=== PATIENT | female | born 1935 | race Caucasian/White ===

== ENCOUNTER 2019-12-26 07:45 | Outpatient (CLI) | payer OTHER ==
[~2019-12-26 07:45] MED LIST: CALAN SR120 MG PO; CIPRO500 MG PO; PAXIL40 MG PO; [UNRECOGNIZED DRUG - OTHER]; [UNRECOGNIZED DRUG - OTHER] PO
== END 2019-12-26 07:53 | disposition home or self-care (01) ==
LOC: SONOGRAMA 07:45
DX: E04.2 Nontoxic multinodular goiter (principal)

== ENCOUNTER 2020-05-07 07:29 | Outpatient (CLI) | payer OTHER | END 2020-05-07 07:34 | disposition home or self-care (01) | LOC: RX STUDY 07:29 | PROVIDERS: ATTEND Internal Medicine Gastroenterology | DX: R13.19 Other dysphagia (principal) ==

== ENCOUNTER 2021-03-29 16:32 | Inpatient (IN) | payer OTHER ==
[~2021-03-29] VITALS: Ht 160 cm; Wt 68.0 kg
[2021-03-29] MEDS ORDERED: ATORVASTATIN CA20 MG (17:00)
[2021-03-29] MEDS ORDERED: NAMENDA5 MG (17:00)
== END 2021-04-01 15:23 | disposition home or self-care (01) | DRG 379 ==
LOC: ER 16:32 → MEDI 21:15
PROVIDERS: ADMIT Internal Medicine; ATTEND Internal Medicine
PROC: 30233N1 Transfusion of Nonautologous Red Blood Cells into Peripheral Vein, Percutaneous Approach (ICD-10-PCS; principal; 2021-03-30)
PROC: 02HV33Z Insertion of Infusion Device into Superior Vena Cava, Percutaneous Approach (ICD-10-PCS; 2021-03-31)
DX: K92.1 Melena (principal); D50.0 Iron deficiency anemia secondary to blood loss (chronic); I10 Essential (primary) hypertension; R13.19 Other dysphagia; Z20.822 Contact with and (suspected) exposure to COVID-19